=== PATIENT | male | born 1950 | race Caucasian/White ===

== ENCOUNTER 2019-05-26 18:43 | Inpatient (IN) | payer OTHER ==
[~2019-05-26] VITALS: Ht 165.1 cm; Wt 68.0 kg
[2019-05-26 19:26] VITALS: Ht 165.1 cm; Wt 68.0 kg
[2019-05-26 20:01] LABS: BASOPHIL % 0.2 % (0-2); PLATELET COUNT 288 x10^3mcL (130-400); RED CELL DISTRIBUTION WIDTH 13.8 % (11.5-14.5)
[2019-05-26 20:13] LABS: CALCIUM 8.7 mg/dL (8.5-10.1); CARBON DIOXIDE 28.8 mmol/L (21-32); CREATININE SERUM 1.1 mg/dL (0.6-1.0)
[2019-05-26 20:19] LABS: BILIRUBIN TOTAL 0.21 mg/dL (0.20-1.00); TOTAL PROTEIN, SERUM 7.4 g/dL (6.4-8.2)
[2019-05-26 20:20] LABS: ALBUMIN 2.4 g/dL (3.4-5.0)
[2019-05-26 20:48] LABS: C REACTIVE PROTEIN 17.9 mg/dL (<=0.9)
[2019-05-27 04:43] VITALS: BP 120/76
[2019-05-27 08:18] VITALS: BP 109/67
[2019-05-27] MEDS ORDERED: VANCOMYCIN1 GM/200 M IV (10:24)
[2019-05-27] MEDS ORDERED: ROC1I IV (10:25)
[2019-05-27 12:55] VITALS: BP 111/64
[2019-05-27 16:52] VITALS: BP 122/71
[2019-05-27 21:41] VITALS: BP 110/57
[2019-05-28 05:08] VITALS: BP 115/71
[2019-05-28 08:17] VITALS: BP 117/76
[2019-05-28 12:27] VITALS: BP 108/60
[2019-05-28 16:19] VITALS: BP 108/60
[2019-05-28 16:56] VITALS: BP 120/73
== END 2019-05-28 21:05 | disposition short-term general hospital (02) | DRG 383 ==
LOC: ED 18:43 → EDSEX 18:43 → MU 05-27 01:29
PROVIDERS: Emergency Medicine; ADMIT Internal Medicine Pulmonary Disease
DX: L03.115 Cellulitis of right lower limb (principal); E87.6 Hypokalemia; Z23 Encounter for immunization
CPT/HCPCS: 90658; G0378; J0696; J1650; J1885; J2270; J3370; J3480; J7030; J7060

== ENCOUNTER 2019-08-24 20:02 | Emergency (ER) | payer OTHER ==
[~2019-08-24] VITALS: Ht 165.1 cm; Wt 65.8 kg
[~2019-08-24 20:02] MED LIST: ROC1I IV; VANCOMYCIN1 GM/200 M IV
[2019-08-24 20:15] VITALS: BP 128/78; Ht 165.1 cm; Wt 65.8 kg
== END 2019-08-24 22:40 | disposition home or self-care (01) ==
LOC: ED 20:02
DX: S82.891D Other fracture of right lower leg, subsequent encounter for closed fracture with routine healing (principal); X58.XXXD Exposure to other specified factors, subsequent encounter
CPT/HCPCS: Q0092